=== PATIENT | male | born 1995 | race Caucasian/White ===

== ENCOUNTER 2020-01-21 15:18 | Emergency (ER) | payer MEDICAID, SELFPAY ==
[2020-01-21 15:46] VITALS: BP 142/86; PULSE 73; RESP 18; TEMP 36.7; O2SAT 99; BMI 23.7
--- NOTE | 2020-01-21 15:55 | XR_ITS ---
PROCEDURE: XR WRIST RT MIN 3V CLINICAL INDICATION: INJURY Posttraumatic pain COMPARISON: No exams were available for comparison FINDINGS: There is a mildly displaced boxer's fracture involving the distal aspect of the 5th metacarpal. In addition, there is nondisplaced fracture at the base of the 4th metacarpal transverse in nature IMPRESSION: 1. Boxer's fracture 5th metacarpal. 2. Nondisplaced transverse fracture base of 4th metacarpal Dictated by: Reyes Moya MD 01/21/2020 18:19 Electronically signed by Reyes Moya MD in [place] 01/21/2020 18:19
--- NOTE | 2020-01-21 15:55 | XR_ITS ---
PROCEDURE: XR HAND RT MIN 3V CLINICAL INDICATION: INJURY Posttraumatic pain COMPARISON: No exams were available for comparison FINDINGS: There is a transverse mildly impacted fracture involving the distal aspect of the 5th metacarpal with mild radial and volar angulation of the distal fracture fragment with minimal anterior displacement of the distal fracture fragment. There is also some cortical irregularity involving the base of the 4th metacarpal and could be due to nondisplaced fracture. Please correlate as the patient's area of pain and tenderness. IMPRESSION: 1. Boxer's fracture 5th metacarpal. 2. Possible nondisplaced fracture base of 4th metacarpal Dictated by: Reyes Moya MD 01/21/2020 18:18 Electronically signed by Reyes Moya MD in [place] 01/21/2020 18:18
[2020-01-21 15:58] VITALS: BP 115/74; PULSE 94; RESP 21; TEMP 37.1; O2SAT 99; BMI 23.7
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
[2020-01-21 16:58] VITALS: BP 115/74; PULSE 94; RESP 21; TEMP 37.1; O2SAT 99
== END 2020-01-21 17:02 | disposition home or self-care (01) ==
PROVIDERS: Emergency Provider Nurse Practitioner
DX: S62.304A Unspecified fracture of fourth metacarpal bone, right hand, initial encounter for closed fracture (principal); S62.306A Unspecified fracture of fifth metacarpal bone, right hand, initial encounter for closed fracture; W22.8XXA Striking against or struck by other objects, initial encounter; Y92.019 Unspecified place in single-family (private) house as the place of occurrence of the external cause
CPT/HCPCS: 29125; 73110; 73130; 99203

== ENCOUNTER → 2020-02-09 12:59 | Outpatient (CLI) | payer MEDICAID, SELFPAY ==
--- NOTE | 2020-02-09 13:11 | XR_ITS ---
PROCEDURE: XR HAND RT MIN 3V CLINICAL INDICATION: right hand boxers fracture Follow-up fracture COMPARISON: XR HAND RT MIN 3V from 01/21/2020 FINDINGS: Healing nondisplaced 5th metacarpal fracture once again noted. There is moderate radial angulation of the distal fracture fragment. Developing callus formation is noted. The fracture is not significantly displaced. IMPRESSION: Healing 5th metacarpal fracture. Dictated by: Reyes Moya MD 02/09/2020 14:04 Electronically signed by Reyes Moya MD in [place] 02/09/2020 14:04
== END ==
PROVIDERS: Visit Provider Orthopaedic Surgery
DX: S62.336A Displaced fracture of neck of fifth metacarpal bone, right hand, initial encounter for closed fracture (principal); S62.344A Nondisplaced fracture of base of fourth metacarpal bone, right hand, initial encounter for closed fracture
CPT/HCPCS: 73130

== ENCOUNTER → 2021-02-01 19:51 | Outpatient (CLI) | payer MEDICAID, SELFPAY | PROVIDERS: Visit Provider Nurse Practitioner Family | DX: J02.9 Acute pharyngitis, unspecified (principal) ==

== ENCOUNTER → 2021-06-05 15:34 | Outpatient (CLI) | payer MEDICAID, SELFPAY | PROVIDERS: PCP Family Medicine; Visit Provider Nurse Practitioner | DX: Z20.822 Contact with and (suspected) exposure to COVID-19 (principal); U07.1 COVID-19 | CPT/HCPCS: C9803; U0003; U0005 ==

== ENCOUNTER → 2021-09-13 16:54 | Outpatient (CLI) | payer MEDICAID, SELFPAY | PROVIDERS: Visit Provider Nurse Practitioner | DX: Z20.822 Contact with and (suspected) exposure to COVID-19 (principal) | CPT/HCPCS: C9803; U0003; U0005 ==